=== PATIENT | female | born 1995 | race Caucasian/White ===

== ENCOUNTER 2018-01-16 09:19 | Inpatient (IN) | payer OTHER ==
[~2018-01-16] VITALS: Ht 165.1 cm; Wt 51.0 kg
[2018-01-16 09:24] VITALS: Ht 165.1 cm; Wt 51.0 kg
[2018-01-16 10:59] LABS: BASOPHIL % 0.2 % (0-2); PLATELET COUNT 198 x10^3mcL (130-400); RED CELL DISTRIBUTION WIDTH 13.1 % (11.5-14.5)
[2018-01-16 11:00] LABS: microscopic required? NO
[2018-01-16 11:10] LABS: CALCIUM 9.1 mg/dL (8.5-10.1); CARBON DIOXIDE 24.4 mmol/L (21-32); CHLORIDE SERUM 104 mmol/L (98-107); CREATININE SERUM 0.7 mg/dL (0.6-1.0); GFR1 > 60 mL/min; GLUCOSE SERUM 95 mg/dL (74-106); POTASSIUM SERUM 3.5 mmol/L (3.5-5.1); SODIUM SERUM 138 mmol/L (136-145)
[2018-01-16 11:14] LABS: ALBUMIN 3.9 g/dL (3.4-5.0); ALKALINE PHOSPHATASE 49 U/L (46-116); ALT/SGPT 19 U/L (14-59); AMYLASE 71 U/L (25-115); AST/SGOT 15 U/L (15-37); LIPASE 122 IU/L (73-393); TOTAL PROTEIN, SERUM 7.4 g/dL (6.4-8.2)
[2018-01-16 11:29] LABS: UA SPECIFIC GRAVITY 1.015 (1.005-1.035); urine erythrocyte NEGATIVE (NEGATIVE)
[2018-01-16 15:00] VITALS: BP 117/70
[2018-01-16 15:08] LABS: FREE T4 1.14 ng/dL (0.76-1.46); FREE THYROXINE INDEX 3.6 ug/dL (1.4-4.5); T4(THYROXINE) 9.7 ug/dL (4.7-13.3)
[2018-01-16 15:24] LABS: MAGNESIUM 2.2 mg/dL (1.8-2.4); PHOSPHOROUS 2.6 mg/dL (2.5-4.9)
[2018-01-16 15:33] LABS: T3 TOTAL 0.93 ng/mL
[2018-01-16 16:57] VITALS: BP 115/67
[2018-01-16 22:23] VITALS: BP 113/66
[2018-01-17 02:30] LABS: AMPHETAMINE QUAL UR NONE DETECTED (NEG <=1000)
[2018-01-17 05:30] VITALS: BP 118/53
[2018-01-17 07:10] LABS: CALCIUM 8.1 mg/dL (8.5-10.1); CHLORIDE SERUM 107 mmol/L (98-107); CREATININE SERUM 0.7 mg/dL (0.6-1.0); GFR1 > 60 mL/min; GLUCOSE SERUM 86 mg/dL (74-106); PHOSPHOROUS 3.6 mg/dL (2.5-4.9); POTASSIUM SERUM 3.4 mmol/L (3.5-5.1); SODIUM SERUM 137 mmol/L (136-145)
[2018-01-17 07:39] LABS: BASOPHIL % 0.2 % (0-2); PLATELET COUNT 167 x10^3mcL (130-400); RED CELL DISTRIBUTION WIDTH 13.1 % (11.5-14.5)
[2018-01-17 08:35] VITALS: BP 94/71
[2018-01-17 13:10] VITALS: BP 118/74
[2018-01-17 17:58] VITALS: BP 105/55
[2018-01-17 21:09] VITALS: BP 106/58
[2018-01-18 05:44] VITALS: BP 110/69
[2018-01-18 06:10] LABS: CALCIUM 8.3 mg/dL (8.5-10.1); CARBON DIOXIDE 26.5 mmol/L (21-32); CHLORIDE SERUM 107 mmol/L (98-107); CREATININE SERUM 0.6 mg/dL (0.6-1.0); GFR1 > 60 mL/min; GLUCOSE SERUM 78 mg/dL (74-106); MAGNESIUM 1.9 mg/dL (1.8-2.4); PHOSPHOROUS 3.5 mg/dL (2.5-4.9); POTASSIUM SERUM 3.8 mmol/L (3.5-5.1); SODIUM SERUM 137 mmol/L (136-145)
[2018-01-18 07:00] LABS: BASOPHIL % 0.4 % (0-2); PLATELET COUNT 163 x10^3mcL (130-400); RED CELL DISTRIBUTION WIDTH 12.8 % (11.5-14.5)
[2018-01-18 09:25] VITALS: BP 112/67
[2018-01-18] MEDS ORDERED: REG5 PO (15:47)
[2018-01-18 17:25] VITALS: BP 106/64
[2018-01-18 18:13] VITALS: BP 106/64
== END 2018-01-18 19:01 | disposition home or self-care (01) | DRG 247 ==
LOC: ED 09:19 → DU 13:40 → MU 01-18 08:01
PROVIDERS: Emergency Medicine; Family Medicine; Student in an Organized Health Care Education/Training Program
DX: K56.609 Unspecified intestinal obstruction, unspecified as to partial versus complete obstruction (principal); E83.51 Hypocalcemia; E87.6 Hypokalemia; Q00-Q99 Congenital malformations, deformations and chromosomal abnormalities; Z68.1 Body mass index [BMI] 19.9 or less, adult
CPT/HCPCS: 83880; 84439; J1885; J2405; J3010; J3480; J7030; Q0092; Q0162; Q9967

== ENCOUNTER 2020-02-17 09:28 | Emergency (ER) | payer BC ==
[~2020-02-17] VITALS: Ht 165.1 cm; Wt 52.2 kg
[~2020-02-17 09:28] MED LIST: REG5 PO
[2020-02-17 09:29] VITALS: BP 122/52; Ht 165.1 cm; Wt 52.2 kg
== END 2020-02-17 11:18 | disposition home or self-care (01) ==
LOC: ED 09:28
DX: S92.414A Nondisplaced fracture of proximal phalanx of right great toe, initial encounter for closed fracture (principal); W20.8XXA Other cause of strike by thrown, projected or falling object, initial encounter; Y93.89 Activity, other specified; Y92.89 Other specified places as the place of occurrence of the external cause; Y99.8 Other external cause status
CPT/HCPCS: Q0092